=== PATIENT | female | born 2005 | race Asian ===

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

== ENCOUNTER 2025-04-14 21:37 | Emergency (ER) | payer BC, OTHER | END 2025-04-14 22:31 | disposition left against medical advice (07) | LOC: ER 21:47 | DX: Z53.21 Procedure and treatment not carried out due to patient leaving prior to being seen by health care provider (principal) ==